=== PATIENT | male | born 1965 | race Caucasian/White ===

== ENCOUNTER 2016-10-06 07:22 | Emergency (ER) | payer BC ==
[~2016-10-06] VITALS: Ht 188 cm; Wt 90.7 kg
[2016-10-06] MEDS ORDERED: INSU100C4 SQ (07:34)
[2016-10-06] MEDS ORDERED: SIMETHICONE 80 MG TAB.CHEW PO STA (07:40)
[2016-10-06] MEDS ORDERED: KETOROLAC TROMETHAMINE 30 MG/ML SYRINGE. IV ONE (07:45)
[2016-10-06] MEDS ORDERED: IV NORMAL SALINE 1000ML BAG 1,000 ML IV ONE (07:45)
[2016-10-06] MEDS ORDERED: FAMOTIDINE 20 MG/2 ML VIAL IVP ONE (07:45)
[2016-10-06] MEDS ORDERED: ONDANSETRON PF 4 MG/2 ML VIAL. IV ONE (07:45)
--- NOTE | 2016-10-06 07:49 | PHYS DOC ---
Past Medical History Past Medical History: Diabetes-Type I Past Surgical History: No Surgical History Alcohol Use: Occasionally Additional Information: on weekends Drug Use: None Adult General Chief Complaint Chief Complaint: ABDOMINAL PAIN HPI HPI Patient is a 50 year old male with history of diabetes type 1 who presents today with generalized abdominal pain rated at 6 out of 10 described as sharp that began at 3 AM this morning. Patient states the pain woke him up. Patient is also complaining of nausea with no vomiting. He states he feels like he has gas in his stomach, and but only a small amount of it is passing. He states he cannot remember when his last bowel movement was. Review of Systems Review of Systems Constitutional: Denies fever or chills [] Eyes: Denies change in visual acuity, redness, or eye pain [] HENT: Denies nasal congestion or sore throat [] Respiratory: Denies cough or shortness of breath [] Cardiovascular: No additional information not addressed in HPI [] GI: abdominal pain, nausea, [] : Denies dysuria or hematuria [] Musculoskeletal: Denies back pain or joint pain [] Integument: Denies rash or skin lesions [] Neurologic: Denies headache, focal weakness or sensory changes [] Endocrine: Denies polyuria or polydipsia [] Current Medications Current Medications Current Medications Medications (Trade) Dose Ordered Sig/[facility] Start Time Stop Time Status Last Admin Dose Admin Famotidine (Pepcid) 20 mg 1X ONCE 10/06/16 07:45 10/06/16 07:46 DC 10/06/16 07:58 20 MG Info (Do NOT chart on this entry -- for MONITORING) 1 each PRN DAILY PRN 10/06/16 08:15 10/08/16 08:14 Iohexol (Omnipaque 300 Mg/ml) 75 ml 1X ONCE 10/06/16 08:00 10/06/16 08:03 DC Ketorolac Tromethamine 30 mg 30 mg 1X ONCE 10/06/16 07:45 10/06/16 07:46 DC 10/06/16 07:57 30 MG Ondansetron HCl (Zofran) 4 mg 1X ONCE 10/06/16 07:45 10/06/16 07:46 DC 10/06/16 07:59 4 MG Simethicone (Gas-X) 80 mg 1X STAT 10/06/16 07:40 10/06/16 07:46 DC Sodium Chloride (Iv Sodium Chloride 0.9% 1000ml Bag) 1,000 ml @ 1,000 mls/hr 1X ONCE 10/06/16 07:45 10/06/16 08:44 DC 10/06/16 07:56 1,000 MLS/HR Allergies Allergies Allergies Coded Allergies Type Severity Reaction Last Updated Verified No Known Drug Allergies 10/06/16 No Physical Exam Physical Exam Constitutional: Well developed, well nourished, no acute distress, non-toxic appearance. [] HENT: Normocephalic, atraumatic, bilateral external ears normal, oropharynx moist, no oral exudates, nose normal. [] Eyes: PERRLA, EOMI, conjunctiva normal, no discharge. [] Neck: Normal range of motion, no tenderness, supple, no stridor. [] Cardiovascular:Heart rate regular rhythm, no murmur [] Lungs & Thorax: Bilateral breath sounds clear to auscultation [] Abdomen:Flat abdomen, bowel sounds normal, soft, slight tenderness to the right upper quadrant, left upper quadrant and right LLQ, no masses, no pulsatile masses. Negative psoas sign, negative obturator, sign negative Rovsing sign, No guarding no rebound pain or tenderness. Skin: Warm, dry, no erythema, no rash. [] Back: No tenderness, no CVA tenderness. [] Extremities: No tenderness, no cyanosis, no clubbing, ROM intact, no edema. [] Neurologic: Alert and oriented X 3, normal motor function, normal sensory function, no focal deficits noted. [] Psychologic: Affect normal, judgement normal, mood normal. [] Current Patient Data Vital Signs Vital Signs Date Time Temp Pulse Resp B/P Pulse Ox O2 Delivery O2 Flow Rate FiO2 10/06/16 08:41 64 18 146/87 99 Room Air 10/06/16 07:30 97.8 97.8 Lab Values Laboratory Tests Test 10/06/16 07:37 10/06/16 08:39 White Blood Count 8.3x10^3/uL (4.0-11.0) Red Blood Count 4.24x10^6/uL (4.30-5.70) L Hemoglobin 13.6g/dL (13.0-17.5) Hematocrit 40.4% (39.0-53.0) Mean Corpuscular Volume 95fL (79-100) Mean Corpuscular Hemoglobin 32pg (25-35) Mean Corpuscular Hemoglobin Concent 34g/dL (31-37) Red Cell Distribution Width 14.0% (11.5-14.5) Platelet Count 194x10^3/uL (140-400) Neutrophils (%) (Auto) 50% (31-73) Lymphocytes (%) (Auto) 36% (24-48) Monocytes (%) (Auto) 10% (0-9) H Eosinophils (%) (Auto) 3% (0-3) Basophils (%) (Auto) 1% (0-3) Neutrophils # (Auto) 4.2x10^3uL (1.8-7.7) Lymphocytes # (Auto) 3.0x10^3/uL (1.0-4.8) Monocytes # (Auto) 0.8x10^3/uL (0.0-1.1) Eosinophils # (Auto) 0.3x10^3/uL (0.0-0.7) Basophils # (Auto) 0.1x10^3/uL (0.0-0.2) Prothrombin Time 12.0SEC (11.7-14.0) Prothrombin Time INR 0.9 (0.8-1.1) Sodium Level 142mmol/L (136-145) Potassium Level 4.0mmol/L (3.5-5.1) Chloride Level 105mmol/L (98-107) Carbon Dioxide Level 31mmol/L (21-32) Anion Gap 6 (6-14) Blood Urea Nitrogen 21mg/dL (8-26) Creatinine 1.2mg/dL (0.7-1.3) Estimated GFR (Cockcroft-Gault) 64.6 BUN/Creatinine Ratio 18 (6-20) Glucose Level 113mg/dL (70-99) H Calcium Level 9.1mg/dL (8.5-10.1) Magnesium Level 2.2mg/dL (1.8-2.4) Total Bilirubin 0.3mg/dL (0.2-1.0) Aspartate Amino Transferase (AST) 29U/L (15-37) Alanine Aminotransferase (ALT) 25U/L (16-63) Alkaline Phosphatase 63U/L (46-116) Creatine Kinase 196U/L (39-308) Creatine Kinase MB (Mass) 1.4ng/mL (0.0-3.6) Creatine Kinase MB Relative Index 0.7% (0-4) Troponin I Quantitative < 0.017ng/mL (0.000-0.055) JB-[id number]-Type Natriuretic Peptide 28pg/mL (0-124) Total Protein 6.6g/dL (6.4-8.2) Albumin 3.1g/dL (3.4-5.0) L Albumin/Globulin Ratio 0.9 (1.0-1.7) L Lipase 170U/L (73-393) Urine Collection Type Unknown Urine Color Yellow Urine Clarity Cloudy Urine pH 5.5 Urine Specific [place] 1.025 Urine Protein Negativemg/dL (NEG-TRACE) Urine Glucose (UA) Negativemg/dL (NEG) Urine Ketones (Stick) Negativemg/dL (NEG) Urine Blood Negative (NEG) Urine Nitrite Negative (NEG) Urine Bilirubin Negative (NEG) Urine Urobilinogen Dipstick 0.2mg/dL (0.2 mg/dL) Urine Leukocyte Esterase Negative (NEG) Urine RBC 0/HPF (0-2) Urine WBC 0/HPF (0-4) Urine Bacteria 0/HPF (0-FEW) Urine Opiates Screen Neg (NEG) Urine Methadone Screen Neg (NEG) Urine Barbiturates Neg (NEG) Urine Phencyclidine Screen Neg (NEG) Urine Amphetamine/Methamphetamine Pos (NEG) Urine Benzodiazepines Screen Neg (NEG) Urine Cocaine Screen Neg (NEG) Urine Cannabinoids Screen Neg (NEG) Urine Ethyl Alcohol Neg (NEG) Laboratory Tests 10/06/16 07:37 Laboratory Tests 10/06/16 07:37 EKG EKG []07:[address] Cowan sinus rhythm, heart rate 59 and QRS interval 92 Radiology/Procedures Radiology/Procedures []PROCEDURE: PORTABLE CHEST 1V Indication abdominal pain and vomiting. A single view of the chest was obtained. No prior imaging is available. The heart and pulmonary vessels are normal and the mediastinum appears normal. The lungs are clear. Visualized bony structures appear grossly intact. IMPRESSION: No acute finding apparent in the chest DICTATED and SIGNED BY: PORTILLO BRAMBILA MD DATE: 10/06/16804 CC: BOBBY CHRIS MD; DENISE TAVERA APRN ~ Course & Med Decision Making Course & Med Decision Making Pertinent Labs and Imaging studies reviewed. (See chart for details) Patient is in the Ed for generalized abdominal pain suspicious for gas. 07:[address] Cowan sinus rhythm, heart rate 59 and QRS interval 92 Chest x-ray interpreted by radiologist is negative for any acute findings Patient was given Toradol, Zofran and famotidine on arrival to the ED. Patient requested to be discharged before on his workup is ready. He states is feeling better and he has to go to work. He was discharged with instructions to follow-up with his PCP. Dragon Disclaimer Dragon Disclaimer This electronic medical record was generated, in whole or in part, using a voice recognition dictation system. Departure Departure Impression: Primary Impression: Abdominal pain Disposition: HOME, SELF-CARE Condition: STABLE Patient Instructions: Abdominal Pain Additional Instructions: You were seen for abdominal pain. Please follow-up with your own doctor in the next 1-7 days. Come back to the ED at any point symptoms worsen. Scripts Ondansetron (Zofran Odt)4 Mg Tab.rapdis1 Tab SL Q8HRS #15 TAB Prov:DENISE TAVERA APRN 10/06/16 Problem Qualifiers Primary Impression: Abdominal pain Abdominal location: generalized Qualified Code: R10.84 - Generalized abdominal pain DENISE TAVERA APRN Oct 06, 2016 07:49
[2016-10-06] MEDS ORDERED: IOHEXOL 300 MG/ML 75 ML VIAL IV ONE (08:00)
--- NOTE | 2016-10-06 08:09 | RAD ---
Indication abdominal pain and vomiting. A single view of the chest was obtained. No prior imaging is available. The heart and pulmonary vessels are normal and the mediastinum appears normal. The lungs are clear. Visualized bony structures appear grossly intact. IMPRESSION: No acute finding apparent in the chest
[2016-10-06] MEDS ORDERED: CONTRAST GIVEN MC PRN (08:15)
[2016-10-06 08:30] LABS: BASO # 0.1 x10^3/uL (0.0-0.2); BASO % 1 % (0-3); CALCIUM 9.1 mg/dL (8.5-10.1); CREATININE 1.2 mg/dL (0.7-1.3); EOS % 3 % (0-3); GFR 64.6; HEMATOCRIT 40.4 % (39.0-53.0); HEMOGLOBIN 13.6 g/dL (13.0-17.5); LYMPH % 36 % (24-48); MEAN CORPUSCULAR HEMOGLOBIN 32 pg (25-35); MEAN CORPUSCULAR HGB CONC 34 g/dL (31-37); MEAN CORPUSCULAR VOLUME 95 fL (79-100); MONO % 10 % (0-9); NEUT % 50 % (31-73); PLATELET COUNT 194 x10^3/uL (140-400); RED BLOOD COUNT 4.24 x10^6/uL (4.30-5.70); WHITE BLOOD COUNT 8.3 x10^3/uL (4.0-11.0)
[2016-10-06 08:35] LABS: ALBUMIN 3.1 g/dL (3.4-5.0); ALBUMIN/GLOBULIN RATIO 0.9 (1.0-1.7); MAGNESIUM 2.2 mg/dL (1.8-2.4); TOTAL BILIRUBIN 0.3 mg/dL (0.2-1.0); TOTAL PROTEIN 6.6 g/dL (6.4-8.2)
[2016-10-06] MEDS ORDERED: DEXT10CA10 PO (08:41)
[2016-10-06 08:44] LABS: CKMB INDEX 0.7 % (0-4); CKMB MASS 1.4 ng/mL (0.0-3.6)
[2016-10-06 08:47] LABS: INR 0.9 (0.8-1.1)
[2016-10-06 08:55] LABS: BILIRUBIN,URINE NEGATIVE (NEG); GLUCOSE,URINE NEGATIVE (NEG); NITRITE,URINE NEGATIVE (NEG); PH,URINE 5.5; PROTEIN,URINE NEGATIVE (NEG-TRACE); UROBILINOGEN,URINE 0.2 mg/dL (0.2 mg/dL)
[2016-10-06 09:01] LABS: BARBITURATES NEG (NEG); BENZODIAZEPINES NEG (NEG); CANNABINOIDS NEG (NEG); COCAINE NEG (NEG); METHADONE NEG (NEG); OPIATES NEG (NEG); PHENCYCLIDINE NEG (NEG)
[2016-10-06 09:02] LABS: ETHANOL, URINE NEG (NEG)
[2016-10-06 09:04] LABS: BACTERIA,URINE 0 /HPF (0-FEW); RBC,URINE 0 /HPF (0-2); WBC,URINE 0 /HPF (0-4)
[2016-10-06] MEDS ORDERED: ONDA4TAB10 SL (09:07)
[2016-10-06 09:22] VITALS: BP 157/63
--- NOTE | 2016-10-06 09:38 | EKG ---
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
== END 2016-10-06 09:20 | disposition home or self-care (01) ==
LOC: ER 07:22
DX: R10.84 Generalized abdominal pain (principal); R11.0 Nausea; E10.9 Type 1 diabetes mellitus without complications
CPT/HCPCS: 36415; 71010; 80053; 80305; 81001; 82553; 83690; 83735; 83880; 84484; 85027; 85610; 93005; 96361; 96374; 96375; 99285; J1885; J2405; J7030; S0028; G0481

== ENCOUNTER 2019-09-29 16:11 | Inpatient (IN) | payer BC ==
[~2019-09-29] VITALS: Ht 188 cm; Wt 86.4 kg
[~2019-09-29 16:11] MED LIST: DEXT10CA10 PO; INSU100C4 SQ; ONDA4TAB10 SL
[2019-09-29] MEDS ORDERED: IV NORMAL SALINE 1000ML BAG 1,000 ML IV ONE (16:15)
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
[2019-09-29 16:38] LABS: BASO # 0.1 x10^3/uL (0.0-0.2); BASO % 1 % (0-3); EOS # 0.5 x10^3/uL (0.0-0.7); EOS % 5 % (0-3); HEMATOCRIT 42.8 % (39.0-53.0); HEMOGLOBIN 14.4 g/dL (13.0-17.5); LYMPH # 3.4 x10^3/uL (1.0-4.8); LYMPH % 31 % (24-48); MEAN CORPUSCULAR HEMOGLOBIN 32 pg (25-35); MEAN CORPUSCULAR HGB CONC 34 g/dL (31-37); MEAN CORPUSCULAR VOLUME 94 fL (79-100); MONO # 0.8 x10^3/uL (0.0-1.1); MONO % 7 % (0-9); NEUT % 56 % (31-73); PLATELET COUNT 201 x10^3/uL (140-400); RED BLOOD COUNT 4.55 x10^6/uL (4.30-5.70); RED CELL DISTRIBUTION WIDTH 13.3 % (11.5-14.5); WHITE BLOOD COUNT 10.7 x10^3/uL (4.0-11.0)
[2019-09-29] MEDS ORDERED: IOHEXOL 300 MG/ML 100ML VIAL. IV ONE (16:45)
[2019-09-29] MEDS ORDERED: CONTRAST GIVEN. MC PRN (16:45)
[2019-09-29 16:49] LABS: PROTHROMBIN TIME PATIENT 12.3 SEC (11.7-14.0)
[2019-09-29 16:51] LABS: CALCIUM 9.2 mg/dL (8.5-10.1); CREATININE 1.3 mg/dL (0.7-1.3); GFR 58.2; POTASSIUM 3.6 mmol/L (3.5-5.1)
[2019-09-29 16:56] LABS: ALBUMIN 3.5 g/dL (3.4-5.0); TOTAL BILIRUBIN 0.3 mg/dL (0.2-1.0); TOTAL PROTEIN 6.9 g/dL (6.4-8.2)
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
[2019-09-29] MEDS ORDERED: DIPH,PERTUSS(ACELL),TET VAC/PF 0.5 ML SYRINGE. VAX IM ONE (17:45)
[2019-09-29] MEDS ORDERED: ACETAMINOPHEN 325 MG TABLET. PO PRN ×2 (17:45→19:45)
[2019-09-29] MEDS ORDERED: HYDROcodone/APAP 5/325MG 1 TAB TABLET PO PRN (17:45)
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
[2019-09-29] MEDS ORDERED: MORPHINE SULFATE 4 MG/ML VIAL. IV ONE (18:00)
[2019-09-29] MEDS: MORPHINE SULFATE 4 MG/ML VIAL. IV PRN (18:38)
[2019-09-29 19:21] VITALS: BP 104/55
[2019-09-29] MEDS ORDERED: diphenhydrAMINE 50 MG/ML VIAL IVP PRN (19:45)
[2019-09-29] MEDS ORDERED: ZOLPIDEM 5 MG TABLET. PO PRN (19:45)
[2019-09-29] MEDS ORDERED: ALBUTEROL SULFATE 2.5 MG/3 ML NEBU. NEB PRN (19:45)
[2019-09-29] MEDS ORDERED: cloNIDine HCL 0.1 MG TABLET PO PRN (19:45)
[2019-09-29] MEDS ORDERED: LORazepam 0.5 MG TABLET PO PRN (19:45)
[2019-09-29] MEDS ORDERED: DOCUSATE SODIUM 100 MG CAPSULE. PO PRN (19:45)
[2019-09-29] MEDS ORDERED: MAG HYDROX/ALUMINUM HYD/SIMETH 30 ML ORAL.SUSP PO PRN (19:45)
[2019-09-29] MEDS ORDERED: 0.9 % SODIUM CHLORIDE 10 ML DISP.SYRIN. IV PRN (19:45)
[2019-09-29] MEDS ORDERED: ONDANSETRON PF 4 MG/2 ML VIAL. IV PRN (19:45)
[2019-09-29] MEDS ORDERED: guaiFENesin ORAL 200 MG/10 ML LIQUID. PO PRN (19:45)
[2019-09-29] MEDS ORDERED: INSU100V13 SQ (19:47)
--- NOTE | 2019-09-29 19:47 | EKG ---
[facility] [address] [place] [address] Test Date: 2019-09-29 Test Time: 16:33:01 Pat Name: QUIQUE ARNOLD Department: Room: Gender: [employer] Offbearer: : 1965 Requested By: DENISE AGUILAR Order Number: [id number] Reading MD: Measurements Intervals [place] Rate: 63 P: 66 SD: 164 QRS: 74 QRSD: 92 T: 74 QT: 432 QTc: 445 Interpretive Statements SINUS RHYTHM INCOMPLETE RIGHT BUNDLE BRANCH BLOCK NON SPECIFIC ST-T ABNORMALITY (ELEVATION) OTHERWISE NORMAL ECG No previous ECG available for comparison
[2019-09-29] MEDS: HYDROcodone/APAP 7.5/325MG 1 TAB TABLET PO PRN (19:55)
[2019-09-29] MEDS: IV NORMAL SALINE 1000ML BAG 1,000 ML IV SCH (19:55)
[2019-09-29] MEDS ORDERED: DEXTROSE 50% 25 GM / 50ML DISP.SYRIN. IV PRN (21:15)
[2019-09-29] MEDS ORDERED: INSULIN GLARGINE SYRINGE. SQ SCH (21:30)
[2019-09-29] MEDS ORDERED: INSULIN GLARGINE SYRINGE. SQ ONE (21:30)
[2019-09-29] MEDS: ENOXAPARIN 40 MG/0.4 ML SYRINGE. SQ SCH (21:57)
[2019-09-29 23:23] VITALS: BP 122/76
[2019-09-30] MEDS: MORPHINE SULFATE 4 MG/ML VIAL. IV PRN ×3 (03:01→06:32)
--- NOTE | 2019-09-30 03:15 | NUR ---
at 09/29/19 1830 pt arrived to unit from ED, Patient admission assessment done, POC discussed with patient and verbalized understanding to POC.
[2019-09-30] MEDS: IV NORMAL SALINE 1000ML BAG 1,000 ML IV SCH ×2 (06:01→12:06)
[2019-09-30 07:00] VITALS: BP 146/72
[2019-09-30] MEDS: INSULIN LISPRO 300 UNITS/3 ML VIAL. SQ SCH ×3 (08:42→17:07)
[2019-09-30] MEDS: IPRATRPIUM/ALBUTEROL 0.5/2.5MG 3 ML NEBU. NEB SCH ×4 (09:15→19:43)
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
[2019-09-30 11:00] VITALS: BP 142/70
[2019-09-30 12:09] LABS: BARBITURATES NEG (NEG); BENZODIAZEPINES NEG (NEG); CANNABINOIDS NEG (NEG); COCAINE NEG (NEG); METHADONE NEG (NEG); OPIATES POS (NEG); PHENCYCLIDINE NEG (NEG)
[2019-09-30 12:13] LABS: AMPHETAMINE/METHAMPHETAMINE POS (NEG)
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
[2019-09-30 15:00] VITALS: BP 134/65
[2019-09-30] MEDS: HYDROcodone/APAP 7.5/325MG 1 TAB TABLET PO PRN (17:37)
[2019-09-30 19:54] VITALS: BP 139/68
[2019-09-30] MEDS: ENOXAPARIN 40 MG/0.4 ML SYRINGE. SQ SCH (20:43)
[2019-09-30] MEDS ORDERED: INSULIN DETEMIR 38 UNIT SQ SCH (21:00)
[2019-09-30] MEDS ORDERED: INSULIN GLARGINE SYRINGE. SQ SCH (21:00)
[2019-09-30 23:00] VITALS: BP 150/76
[2019-10-01] MEDS: IV NORMAL SALINE 1000ML BAG 1,000 ML IV SCH (01:33)
[2019-10-01] MEDS: HYDROcodone/APAP 7.5/325MG 1 TAB TABLET PO PRN ×3 (01:51→14:38)
[2019-10-01 07:00] VITALS: BP 163/89
[2019-10-01] MEDS: INSULIN LISPRO 300 UNITS/3 ML VIAL. SQ SCH ×2 (08:01→11:57)
--- NOTE | 2019-10-01 08:25 | PDOC ---
PULMONARY PROGRESS NOTES Vitals Vital Signs Date Time Temp Pulse Resp B/P (MAP) Pulse Ox O2 Delivery O2 Flow Rate FiO2 10/01/19 08:11 18 Room Air 10/01/19 07:00 97.9 98 163/89 (113) 90 97.9 09/30/19 19:46 2.0 Lungs: Clear Labs Laboratory Tests Test 09/29/19 16:20 09/29/19 17:30 09/29/19 20:45 09/29/19 20:56 White Blood Count 10.7 x10^3/uL (4.0-11.0) Red Blood Count 4.55 x10^6/uL (4.30-5.70) Hemoglobin 14.4 g/dL (13.0-17.5) Hematocrit 42.8 % (39.0-53.0) Mean Corpuscular Volume 94 fL (79-100) Mean Corpuscular Hemoglobin 32 pg (25-35) Mean Corpuscular Hemoglobin Concent 34 g/dL (31-37) Red Cell Distribution Width 13.3 % (11.5-14.5) Platelet Count 201 x10^3/uL (140-400) Neutrophils (%) (Auto) 56 % (31-73) Lymphocytes (%) (Auto) 31 % (24-48) Monocytes (%) (Auto) 7 % (0-9) Eosinophils (%) (Auto) 5 % (0-3) Basophils (%) (Auto) 1 % (0-3) Neutrophils # (Auto) 6.0 x10^3/uL (1.8-7.7) Lymphocytes # (Auto) 3.4 x10^3/uL (1.0-4.8) Monocytes # (Auto) 0.8 x10^3/uL (0.0-1.1) Eosinophils # (Auto) 0.5 x10^3/uL (0.0-0.7) Basophils # (Auto) 0.1 x10^3/uL (0.0-0.2) Prothrombin Time 12.3 SEC (11.7-14.0) Prothromb Time International Ratio 1.0 (0.8-1.1) Activated Partial Thromboplast Time 26 SEC (24-38) Sodium Level 142 mmol/L (136-145) Potassium Level 3.6 mmol/L (3.5-5.1) Chloride Level 101 mmol/L (98-107) Carbon Dioxide Level 30 mmol/L (21-32) Anion Gap 11 (6-14) Blood Urea Nitrogen 16 mg/dL (8-26) Creatinine 1.3 mg/dL (0.7-1.3) Estimated GFR (Cockcroft-Gault) 58.2 BUN/Creatinine Ratio 12 (6-20) Glucose Level 116 mg/dL (70-99) Calcium Level 9.2 mg/dL (8.5-10.1) Total Bilirubin 0.3 mg/dL (0.2-1.0) Aspartate Amino Transf (AST/SGOT) 20 U/L (15-37) Alanine Aminotransferase (ALT/SGPT) 26 U/L (16-63) Alkaline Phosphatase 80 U/L (46-116) Troponin I Quantitative < 0.017 ng/mL (0.000-0.055) Total Protein 6.9 g/dL (6.4-8.2) Albumin 3.5 g/dL (3.4-5.0) Albumin/Globulin Ratio 1.0 (1.0-1.7) Lipase 101 U/L (73-393) Ethyl Alcohol Level < 10 mg/dL (0-10) Lactic Acid Level 2.3 mmol/L (0.4-2.0) 0.8 mmol/L (0.4-2.0) Glucose (Fingerstick) 207 mg/dL (70-99) Test 09/30/19 08:34 09/30/19 10:50 09/30/19 11:45 09/30/19 16:38 Glucose (Fingerstick) 300 mg/dL (70-99) 280 mg/dL (70-99) 330 mg/dL (70-99) Urine Opiates Screen Pos (NEG) Urine Methadone Screen Neg (NEG) Urine Barbiturates Neg (NEG) Urine Phencyclidine Screen Neg (NEG) Urine Amphetamine/Methamphetamine Pos (NEG) Urine Benzodiazepines Screen Neg (NEG) Urine Cocaine Screen Neg (NEG) Urine Cannabinoids Screen Neg (NEG) Urine Ethyl Alcohol Neg (NEG) Test 09/30/19 20:42 10/01/19 07:26 Glucose (Fingerstick) 346 mg/dL (70-99) 170 mg/dL (70-99) Laboratory Tests Test 09/30/19 08:34 09/30/19 10:50 09/30/19 11:45 09/30/19 16:38 Glucose (Fingerstick) 300 mg/dL (70-99) 280 mg/dL (70-99) 330 mg/dL (70-99) Urine Opiates Screen Pos (NEG) Urine Methadone Screen Neg (NEG) Urine Barbiturates Neg (NEG) Urine Phencyclidine Screen Neg (NEG) Urine Amphetamine/Methamphetamine Pos (NEG) Urine Benzodiazepines Screen Neg (NEG) Urine Cocaine Screen Neg (NEG) Urine Cannabinoids Screen Neg (NEG) Urine Ethyl Alcohol Neg (NEG) Test 09/30/19 20:42 10/01/19 07:26 Glucose (Fingerstick) 346 mg/dL (70-99) 170 mg/dL (70-99) Medications Active Scripts Medications Dose Route/Sig Max Daily Dose Days Date Category Levemir (Insulin Detemir) 100 Unit/1 Ml Vial 38 Unit SQ HS 09/29/19 Reported IVONE CORREA MD Oct 01, 2019 08:25
--- NOTE | 2019-10-01 10:01 | PDOC ---
ORTHO PROGRESS NOTES Subjective Patient states pain tolerable. Procedure Closed left acetabular fracture. Vitals Vital Signs Date Time Temp Pulse Resp B/P (MAP) Pulse Ox O2 Delivery O2 Flow Rate FiO2 10/01/19 08:11 18 Room Air 10/01/19 07:00 97.9 98 163/89 (113) 90 97.9 09/30/19 19:46 2.0 Labs Laboratory Tests Test 09/29/19 16:20 09/29/19 17:30 09/29/19 20:45 09/29/19 20:56 White Blood Count 10.7 x10^3/uL (4.0-11.0) Red Blood Count 4.55 x10^6/uL (4.30-5.70) Hemoglobin 14.4 g/dL (13.0-17.5) Hematocrit 42.8 % (39.0-53.0) Mean Corpuscular Volume 94 fL (79-100) Mean Corpuscular Hemoglobin 32 pg (25-35) Mean Corpuscular Hemoglobin Concent 34 g/dL (31-37) Red Cell Distribution Width 13.3 % (11.5-14.5) Platelet Count 201 x10^3/uL (140-400) Neutrophils (%) (Auto) 56 % (31-73) Lymphocytes (%) (Auto) 31 % (24-48) Monocytes (%) (Auto) 7 % (0-9) Eosinophils (%) (Auto) 5 % (0-3) Basophils (%) (Auto) 1 % (0-3) Neutrophils # (Auto) 6.0 x10^3/uL (1.8-7.7) Lymphocytes # (Auto) 3.4 x10^3/uL (1.0-4.8) Monocytes # (Auto) 0.8 x10^3/uL (0.0-1.1) Eosinophils # (Auto) 0.5 x10^3/uL (0.0-0.7) Basophils # (Auto) 0.1 x10^3/uL (0.0-0.2) Prothrombin Time 12.3 SEC (11.7-14.0) Prothromb Time International Ratio 1.0 (0.8-1.1) Activated Partial Thromboplast Time 26 SEC (24-38) Sodium Level 142 mmol/L (136-145) Potassium Level 3.6 mmol/L (3.5-5.1) Chloride Level 101 mmol/L (98-107) Carbon Dioxide Level 30 mmol/L (21-32) Anion Gap 11 (6-14) Blood Urea Nitrogen 16 mg/dL (8-26) Creatinine 1.3 mg/dL (0.7-1.3) Estimated GFR (Cockcroft-Gault) 58.2 BUN/Creatinine Ratio 12 (6-20) Glucose Level 116 mg/dL (70-99) Calcium Level 9.2 mg/dL (8.5-10.1) Total Bilirubin 0.3 mg/dL (0.2-1.0) Aspartate Amino Transf (AST/SGOT) 20 U/L (15-37) Alanine Aminotransferase (ALT/SGPT) 26 U/L (16-63) Alkaline Phosphatase 80 U/L (46-116) Troponin I Quantitative < 0.017 ng/mL (0.000-0.055) Total Protein 6.9 g/dL (6.4-8.2) Albumin 3.5 g/dL (3.4-5.0) Albumin/Globulin Ratio 1.0 (1.0-1.7) Lipase 101 U/L (73-393) Ethyl Alcohol Level < 10 mg/dL (0-10) Lactic Acid Level 2.3 mmol/L (0.4-2.0) 0.8 mmol/L (0.4-2.0) Glucose (Fingerstick) 207 mg/dL (70-99) Test 09/30/19 08:34 09/30/19 10:50 09/30/19 11:45 09/30/19 16:38 Glucose (Fingerstick) 300 mg/dL (70-99) 280 mg/dL (70-99) 330 mg/dL (70-99) Urine Opiates Screen Pos (NEG) Urine Methadone Screen Neg (NEG) Urine Barbiturates Neg (NEG) Urine Phencyclidine Screen Neg (NEG) Urine Amphetamine/Methamphetamine Pos (NEG) Urine Benzodiazepines Screen Neg (NEG) Urine Cocaine Screen Neg (NEG) Urine Cannabinoids Screen Neg (NEG) Urine Ethyl Alcohol Neg (NEG) Test 09/30/19 20:42 10/01/19 07:26 Glucose (Fingerstick) 346 mg/dL (70-99) 170 mg/dL (70-99) Laboratory Tests Test 09/30/19 10:50 09/30/19 11:45 09/30/19 16:38 09/30/19 20:42 Glucose (Fingerstick) 280 mg/dL (70-99) 330 mg/dL (70-99) 346 mg/dL (70-99) Urine Opiates Screen Pos (NEG) Urine Methadone Screen Neg (NEG) Urine Barbiturates Neg (NEG) Urine Phencyclidine Screen Neg (NEG) Urine Amphetamine/Methamphetamine Pos (NEG) Urine Benzodiazepines Screen Neg (NEG) Urine Cocaine Screen Neg (NEG) Urine Cannabinoids Screen Neg (NEG) Urine Ethyl Alcohol Neg (NEG) Test 10/01/19 07:26 Glucose (Fingerstick) 170 mg/dL (70-99) Notes awake and alert sitting up in chair at bedside. Assessment and Plan Patient with Closed left acetabular fracture motor and sensation intact LLE per RN ambulating well with walker Continue TTWB Continue Lovenox x 1 month FCO RODRIGUEZ APRN Oct 01, 2019 10:01
[2019-10-01 11:00] VITALS: BP 139/73
--- NOTE | 2019-10-01 11:11 | RAD ---
CHEST PA LATERAL Clinical indications: Follow-up of rib fracture. Possible pneumothorax. COMPARISON: Chest CT dated September 29, 2019. Chest x-ray dated October 06, 2016. Findings: A small posterior left-sided pleural effusion is seen. No acute lung infiltrate or pulmonary edema or lung mass or pneumothorax is seen. The heart size, pulmonary vasculature, mediastinum and both thaddeus are unremarkable. The nondisplaced left lateral seventh rib fracture seen on the chest CT is not visible on this chest x-ray. Impression: Small posterior left-sided pleural effusion. No pneumothorax. Left lateral seventh rib fracture seen on the chest CT cannot be visualized on this chest x-ray. Electronically signed by: Vj Yusuf MD (10/01/2019 11:08 AM) [facility] [place]
[2019-10-01] MEDS: IPRATRPIUM/ALBUTEROL 0.5/2.5MG 3 ML NEBU. NEB SCH (11:34)
--- NOTE | 2019-10-01 14:05 | NUR ---
SW following. Discussed with RN, pt from home with , getting $20 walker from nursing supervisor sanding. Pt tested positive for meth, however RN advised no need for PAT eval at this time. Pt discharging home with self care today. RN advised no SW needs.
--- NOTE | 2019-10-01 15:25 | NUR ---
Discussed discharge instructions/medications with pt. Rx for Percocet 5/325 #30 and shower chair given to pt. Explained medication will need to be filled for pain control. Pt verbalized understanding. Explained pt will need to f/u with Dr. Marie x2 weeks. Pt voiced understanding explaining he will make the appt. Pt wheeled out to hospital exit with belongings and walker, purchased in facility, without complications. Pt secured in private vehicle.
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
== END 2019-10-01 15:25 | disposition home or self-care (01) | DRG 205 ==
LOC: ER 16:11 → 4 NORTH 17:41 → OBSVTOIN 19:33
PROVIDERS: ADMIT Family Medicine; ATTEND Family Medicine
DX: S22.32XA Fracture of one rib, left side, initial encounter for closed fracture (principal); S32.402A Unspecified fracture of left acetabulum, initial encounter for closed fracture; E10.9 Type 1 diabetes mellitus without complications; F17.210 Nicotine dependence, cigarettes, uncomplicated; M19.90 Unspecified osteoarthritis, unspecified site; V28.4XXA Motorcycle driver injured in noncollision transport accident in traffic accident, initial encounter; Y93.55 Activity, bike riding; Y92.488 Other paved roadways as the place of occurrence of the external cause; Z79.4 Long term (current) use of insulin; Y99.8 Other external cause status; Z83.3 Family history of diabetes mellitus; Z82.49 Family history of ischemic heart disease and other diseases of the circulatory system
CPT/HCPCS: 36415; 70450; 71046; 71260; 72125; 73030; 73552; 74177; 80053; 80307; 82962; 83605; 83690; 84484; 85025; 85610; 85730; 90471; 90715; 93005; 94640; G0238; G0378; G0379; G0480; J1650; J1815; J2270; J7030; Q9967; 97116; 97530; 97535

== ENCOUNTER 2019-11-10 08:10 | Emergency (ER) | payer BC ==
[~2019-11-10] VITALS: Ht 188 cm; Wt 95.5 kg
[~2019-11-10 08:10] MED LIST changes: +INSU100V13 SQ
--- NOTE | 2019-11-10 08:41 | PHYS DOC ---
Past Medical History Past Medical History: Diabetes-Type I Past Surgical History: Cholecystectomy Smoking Status: Current Every Day Smoker Alcohol Use: Occasionally Drug Use: None General Adult EDM: Chief Complaint: HYPOGLYCEMIA HPI: HPI: Patient is a 53-year-old insulin requiring diabetic who states he has been taking insulin injections for about 11 years presents with altered mental status secondary to low blood sugar this morning. Patient states early this morning he was on the floor in his bedroom and felt as if he had no motor function. His found him noted that his blood sugar was low gave him a banana and called EMS. On EMS arrival his blood sugar was 35 they gave him 2 packets of oral glucose with some improvement in his symptoms. He was given IV glucose in route and on arrival to the emergency department patient states he feels much better. He currently denies any headache any lateralizing neurologic weakness. He steve es any chest pain. He states he wants to eat some breakfast and feels back to normal now. He states this has happened before. Interestingly, he does not recall taking his insulin this morning. [] Review of Systems: Review of Systems: Constitutional: Denies fever or chills. [] Eyes: Denies change in visual acuity. [] HENT: Denies nasal congestion or sore throat. [] Respiratory: Denies cough or shortness of breath. [] Cardiovascular: Denies chest pain or edema. [] GI: Denies abdominal pain, nausea, vomiting, bloody stools or diarrhea. [] : Denies dysuria. [] Musculoskeletal: Denies back pain or joint pain. [] Integument: Denies rash. [] Neurologic: Per HPI. [] Endocrine: Denies polyuria or polydipsia. [] Lymphatic: Denies swollen glands. [] Psychiatric: Denies depression or anxiety. [] Heart Score: Risk Factors: Risk Factors: DM, Current or recent (<one month) smoker, HTN, HLP, family history of CAD, obesity. Risk Scores: Score 0 - 3: 2.5% MACE over next 6 weeks - Discharge Home Score 4 - 6: 20.3% MACE over next 6 weeks - Admit for Clinical Observation Score 7 - 10: 72.7% MACE over next 6 weeks - Early Invasive Strategies Allergies: Allergies: Allergies Coded Allergies Type Severity Reaction Last Updated Verified No Known Drug Allergies 3/29/17 No Physical Exam: PE: Constitutional: Well developed, well nourished, no acute distress, non-toxic appearance. [] HENT: Normocephalic, atraumatic, bilateral external ears normal, oropharynx moist, no oral exudates, nose normal. [] Eyes: PERRLA, EOMI, conjunctiva normal, no discharge. [] Neck: Normal range of motion, no tenderness, supple, no stridor. [] Cardiovascular:Heart rate regular rhythm, no murmur [] Lungs & Thorax: Bilateral breath sounds clear to auscultation [] Abdomen: Bowel sounds normal, soft, no tenderness, no masses, no pulsatile masses. [] Skin: Warm, dry, no erythema, no rash. [] Back: No tenderness, no CVA tenderness. [] Extremities: No tenderness, no cyanosis, no clubbing, ROM intact, no edema. [] Neurologic: Alert and oriented X 3, normal motor function, normal sensory function, no focal deficits noted. [] Psychologic: Affect normal, judgement normal, mood normal. [] Current Patient Data: Labs: Laboratory Tests Test 11/10/19 08:22 Glucose (Fingerstick) 114 mg/dL (70-99) H EKG: EKG: [] Radiology/Procedures: Radiology/Procedures: [] Course & Med Decision Making: Course & Med Decision Making Pertinent Labs and Imaging studies reviewed. (See chart for details) [ED course: Evaluation reveals a 53-year-old male with low blood sugar. He had IV glucose oral glucose and ate a large breakfast here in the emergency department. His blood sugar was 114 and held stable. I believe the patient is safe for discharge home. I have encouraged him to cut his nighttime glucose in half. He will also need to follow with his primary care physician on Tuesday or Tuesday for recheck.] Dragon Disclaimer: Dragon Disclaimer: This electronic medical record was generated, in whole or in part, using a voice recognition dictation system. Departure Departure Impression: Primary Impression: Hypoglycemia Disposition: HOME, SELF-CARE Condition: STABLE Referrals: BOBBY CHRIS MD (PCP) Patient Instructions: Hypoglycemia (Low Blood Sugar) Additional Instructions: I would cut your nighttime insulin in half for the next couple of days. It is very important that you follow-up with your primary care physician in the next 2 to 3 days to address this episode of low blood sugar. Please return to the [facility] with any new or concerning symptoms AISHA IZQUIERDO DO November 10, 2019 08:41
[2019-11-10 08:56] LABS: BASO # 0.1 x10^3/uL (0.0-0.2); BASO % 1 % (0-3); EOS # 0.5 x10^3/uL (0.0-0.7); EOS % 5 % (0-3); HEMATOCRIT 41.7 % (39.0-53.0); HEMOGLOBIN 13.9 g/dL (13.0-17.5); LYMPH # 2.8 x10^3/uL (1.0-4.8); LYMPH % 26 % (24-48); MEAN CORPUSCULAR HEMOGLOBIN 31 pg (25-35); MEAN CORPUSCULAR HGB CONC 33 g/dL (31-37); MEAN CORPUSCULAR VOLUME 94 fL (79-100); MONO % 9 % (0-9); NEUT # 6.2 x10^3/uL (1.8-7.7); NEUT % 59 % (31-73); PLATELET COUNT 263 x10^3/uL (140-400); RED BLOOD COUNT 4.42 x10^6/uL (4.30-5.70); RED CELL DISTRIBUTION WIDTH 13.6 % (11.5-14.5); WHITE BLOOD COUNT 10.5 x10^3/uL (4.0-11.0)
[2019-11-10 09:00] VITALS: BP 150/69
[2019-11-10 09:01] LABS: CALCIUM 8.7 mg/dL (8.5-10.1); CREATININE 1.1 mg/dL (0.7-1.3); GFR 70.6; POTASSIUM 4.3 mmol/L (3.5-5.1)
[2019-11-10 09:07] LABS: ALBUMIN 3.5 g/dL (3.4-5.0); ALBUMIN/GLOBULIN RATIO 1.1 (1.0-1.7); MAGNESIUM 1.9 mg/dL (1.8-2.4); TOTAL BILIRUBIN 0.2 mg/dL (0.2-1.0); TOTAL PROTEIN 6.8 g/dL (6.4-8.2)
== END 2019-11-10 09:24 | disposition home or self-care (01) ==
LOC: ER 08:10
DX: E10.649 Type 1 diabetes mellitus with hypoglycemia without coma (principal); R41.82 Altered mental status, unspecified; F17.200 Nicotine dependence, unspecified, uncomplicated; Z90.49 Acquired absence of other specified parts of digestive tract
CPT/HCPCS: 36415; 80053; 82962; 83735; 85025; 99283